=== PATIENT | male | born 2000 | race Two or more races ===

== ENCOUNTER 2024-07-12 12:47 | Emergency (ER) | payer SELFPAY ==
[2024-07-12 13:25] VITALS: BP 143/82; PULSE 93; RESP 20; TEMP 36.8; O2SAT 97
--- NOTE | 2024-07-12 13:29 | EDNOTE_ITS ---
<Statement entered by Malka Pugh MD - 07/12/24 17:36> As co-signing physician, I was present and available for consult prn. I concur with the plan and care as documented by the midlevel provider. ED General RME/HPI General Chief complaint: General Adult/Misc Complain Stated complaint: NUMBNESS TO ABD AND EXTREMITIES Time Seen by Provider: 07/12/24 13:17 Arrival date/time: 07/12/24 12:47 CC: Numbness and tingling down the blade of both hands. But also wants STD treatment. Patient denies fever chills chest pain shortness of breath difficulty breathing Related Data Previous Rx's ?Medication ?Instructions ?Recorded Hydrocodone/Acetaminophen * (NORCO 1 tab PO Q6H PRN PA IN #10 tabs 08/13/15 5/325 *) ibuprofen 800 mg tablet 800 mg PO TID PRN pain #30 t abs 04/11/19 doxycycline hyclate 100 mg capsule 100 mg PO BID #20 c aps 07/12/24 Allergies Allergy/AdvReac Type Severity Reaction Status Date / Time No Known Allergies Allergy Verified 07/12/24 12:49 Review of Systems Review of Systems Narrative Review of Systems: GEN: No fever, no chills, no weight loss EYES: No discharge, no visual changes, no pain HEENT: No ear pain, no congestion, no sore throat PULM: No shortness of breath, no cough, no congestion CV: No chest pain, no dyspnea on exertion, no palpitations GI: No nausea, no vomiting, no diarrhea, no pain, no constipation : No frequency, no urgency, no dysuria MUSC/SKEL: No joint pain, no back pain SKIN: No rash PSYCH: No hallucinations, no depression HEME/LYMPH: No easy bleeding or bruising tendencies NEURO: No weakness, no headache Past Medical History Past Medical History CARDIAC: Negative Congestive Heart Failure RESPIRATORY: Negative Chronic Obstructive Pulmonary Disease (COPD) GENITOURINARY: Negative Renal Disease ENDOCRINE: Negative Diabetes Mellitus Type 1 or Diabetes Mellitus Type 2 Social History SMOKING STATUS: Never smoker ED Exam Narrative Physical exam: [General: Not in any acute distress Head normocephalic HEENT: Eyes pupils are PERRLA EOMs are intact mouth pink moist membranes uvula is midline swallow symmetrical phonation is normal. All other subsystems of ATTR within acceptable limits Neck is supple nontender no JVD no edema Chest equal chest rise nontender to palpation Respiratory: Clear to auscultation no wheezes crackles or rubs CV: Rate rhythm is regular no murmurs rubs or clicks Abdomen is soft nontender no masses positive bowel sounds all 4 quadrants Back: No CVA tenderness no spinous process tenderness from cervical spine thorac ic and lumbar spine Skin: Intact no petechiae rash induration ulceration or crepitus Extremities: Moving all extremity against resistance cap refill less than 2 seconds neurosensory intact Neuro: Awake alert oriented x3 Glascow coma 15 no focal deficits] Course Quality Measures none Orders Category Date Time Status cefTRIAXone [Rocephin] 1,000 mg Med 07/12/24 13:29 Discontinued Lidocaine 1% 20 ml [Xylocaine 1% 20 ML] 2.1 ml IM X1 Vital Signs Vital signs: Vital Signs Temperature 98.3 F 07/12/24 13:25 Pulse Rate 93 07/12/24 13:25 Respiratory Rate 20 07/12/24 13:25 Blood Pressure 143/82 H 07/12/24 13:25 Pulse Oximetry (%) 97 07/12/24 13:25 Oxygen Delivery Method Room Air 07/12/24 13:25 MDM Patient data External records reviewed:: [facility] previous records Clinical information provided by:: patient Social determinants that could affect healthcare access:: none Patient has the following chronic illnesses:: None yeah How is presenting disease/condition affected by chronic disease/condition?: uneffected by Evaluation data The following diagnostics were reviewed and interpreted by me:: other (specify) (None) Lab and/or radiology exams considered but not ordered:: None Interpretation Summary: I believe the patient symptoms of the numbness down his arms is anxiety but the patient is more concerned about his STD treatment. Will treat the patient and discharged home. Medications Medications considered but not ordered:: None Medication administrations:: Medication Administration History Discontinued Medications Ceftriaxone Sodium 1,000 mg/ (Lidocaine HCl 2.1 ml) 0 mg IM X1 ONE Stop: 07/12/24 13:30 Last Admin: 07/12/24 14:25 Dose: 1,000 mg Documented By: None Consultations Consultation(s) initiated? (list below): No Diagnosis Differential Diagnosis ED Complaint MDM: STD treatment, somatization., Anxiety Most likely diagnosis given after review of the tests above:: STD treatment Admission Indicated Admission indicated?: not indicated Explain why admission is indicated or not indicated:: Stable for discharge Admission Request Was there a request for admission?: No Disposition Plan Disposition Plan: Discharge Discharge Attestation Discharge Attestation: The patient and all family members were given an opportunity to ask questions and understood the discharge instructions. Discharge instructions specifically effects, indications for sooner follow up or return to the emergency department, and the expected course of current diagnosis. Patient condition: Stable Medical Decision Making Differential Diagnosis Differential Diagnosis: STD treatment, somatization., Anxiety Discharge Plan Plan Patient Disposition: HOME (Self Care) Patient condition on transfer: Stable Prescriptions/Referrals Prescriptions/Med Rec: New doxycycline hyclate 100 mg capsule 100 mg PO BID Qty: 20 0RF No Action Hydrocodone/Acetaminophen * (NORCO 5/325 *) 1 TAB tablet 1 tab PO Q6H PRN (Reason: PAIN) Qty: 10 0RF ibuprofen 800 mg tablet 800 mg PO TID PRN (Reason: pain) Qty: 30 0RF Problem List Clinical Impression: Exposure to STD Patient/Caregiver Discharge Instructions Other Activity Instructions:: Take the medications until completely gone if there is a worsening of symptoms follow-up with your primary care provider return to the emergency room for reevaluation. Print Language: Yoruba Stand Alone Forms: Debi Award Info., Work/School Release, Patient Portal Info Letter BELINDA/EDILBERTO Supervising Physician BELINDA/EDILBERTO Supervising Physician: Durga Bailey ENP
[2024-07-12] MEDS: cefTRIAXone 1,000 MG, LIDOCAINE 1% 20 ML 2.1 ML IM (14:25)
== END 2024-07-12 14:39 | disposition home or self-care (01) ==
LOC: SERX 14:42
PROVIDERS: Emergency Provider Emergency Medicine
DX: Z20.2 Contact with and (suspected) exposure to infections with a predominantly sexual mode of transmission (principal)
CPT/HCPCS: 96372; 99283; J0696; J3490